=== PATIENT | female | born 1990 | race American Indian/Alaskan Native ===

== ENCOUNTER 2018-10-08 16:49 | Emergency (ER) | payer BC ==
[2018-10-08] MEDS ORDERED: Ketorolac 60 MG/2 ML SDV IM ONE (17:02)
[2018-10-08] MEDS ORDERED: Acetaminophen/HYDROcodone 325-5 MG Tab PO ONE (17:12)
[2018-10-08] MEDS ORDERED: Cyclobenzaprine 10 MG Tab PO ONE (17:46)
--- NOTE | 2018-10-08 18:01 | EDM.PDOC ---
ED HPI GENERAL MEDICAL PROBLEM - General Chief Complaint: Back Pain or Injury Stated Complaint: mid back pain Time Seen by Provider: 10/08/18 16:55 Source of Information: Reports: Patient History Limitations: Reports: No Limitations - History of Present Illness INITIAL COMMENTS - FREE TEXT/NARRATIVE: patient reports waking this am with LEFT side mid back pain that progressively worsened throughout the day. she denies trauma or injury. she denies other concerns or complaints. Onset: Today, Gradual Duration: Constant, Getting Worse Quality: Reports: Other (squeeze / spasm) Severity: Moderate Improves with: Reports: None Worsens with: Reports: Movement Context: Reports: Other (works as a [employer]EMENT [employer]. daily heaving lifting. 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 [No Known Home Meds] 04/12/14 [History] Social & Family History - Family History Family Medical History: Noncontributory - Tobacco Use Smoking Status *Q: Never Smoker - Caffeine Use Caffeine Use: Reports: None - Recreational Drug Use Recreational Drug Use: No - Living Situation & Occupation Living situation: Reports: , with Family Occupation: Employed ED ROS GENERAL - Review of Systems Review Of Systems: See Below Constitutional: Denies: Fever, Chills Respiratory: Denies: Shortness of Breath Cardiovascular: Denies: Chest Pain GI/Abdominal: Denies: Abdominal Pain, Diarrhea, Nausea, Vomiting : Denies: Dysuria, Flank Pain Musculoskeletal: Reports: Back Pain. Denies: Neck Pain Skin: Denies: Rash Neurological: Denies: Dizziness, Headache ED EXAM,LOWER BACK PAIN/INJURY - Physical Exam Exam: See Below Exam Limited By: No Limitations General Appearance: Alert, WD/WN, No Apparent Distress Head: Atraumatic, Normocephalic Neck: Full Range of Motion Respiratory/Chest: No Respiratory Distress Cardiovascular: Normal Peripheral Pulses, Regular Rate, Rhythm, No Edema Back Exam: Normal Inspection, Decreased Range of Motion, Muscle Spasm. No: CVA Tenderness (L), CVA Tenderness (R), Paraspinal Tenderness, Vertebral Tenderness Extremities: Normal Inspection, Normal Range of Motion, Non-Tender Neurological: Alert, Normal Mood/Affect Psychiatric: Normal Affect, Normal Mood Skin Exam: Warm, Dry, Intact, Normal Color, No Rash Course - Vital Signs Last Recorded V/S: Last Vital Signs Temp 36.6 C 10/08/18 16:50 Pulse 86 10/08/18 16:50 Resp 20 10/08/18 16:50 BP 117/64 10/08/18 16:50 Pulse Ox 100 10/08/18 16:50 - Orders/Labs/Meds Meds: Medications Discontinued Medications Generic Name Dose Route Start Last Admin Trade Name Freq PRN Reason Stop Dose Admin Hydrocodone Bitart/Acetaminophen 2 tab 10/08/18 17:12 10/08/18 17:17 [place] 325-5 Mg PO 10/08/18 17:13 2 tab ONETIME ONE Administration Cyclobenzaprine HCl 10 mg 10/08/18 17:46 Flexeril PO 10/08/18 17:47 ONETIME ONE Ketorolac Tromethamine 60 mg 10/08/18 17:02 10/08/18 17:16 Toradol IM 10/08/18 17:03 60 mg ONETIME ONE Administration Departure - Departure Time of Disposition: 17:55 Disposition: Home, Self-Care 01 Condition: Good Clinical Impression: Muscle spasm of back - Discharge Information *PRESCRIPTION DRUG MONITORING PROGRAM REVIEWED*: Not Applicable *COPY OF PRESCRIPTION DRUG MONITORING REPORT IN PATIENT DANIA: Not Applicable Instructions: Muscle Cramps and Spasms Referrals: Keke Torres RN [Emergency Nurse] - Additional Instructions: REST HYDRATE TAKE ALL MEDICATIONS DIRECTED OTC TYLENOL AND IBUPROFEN NEEDED FOR PAIN ALTERNATE ICE AND HEAT TO THE AREA FOLLOW UP WITH YOUR PCP IN 3-5 DAYS GO TO [facility] ER IF CHANGE OR WORSE - Problem List Review Problem List Initiated/Reviewed/Updated: Yes - Assessment/Plan Assessment:: muscle spasm given PO cyclobenzaprine, po norco, and IM toradol. these interventions somewhat relieved her pain. rx for po cyclobenzaprine. advised patient to rest, hydrate, take all rx as directed, otc tylenol / ibuprofen prn pain, alternate ice and heat, go to closest er if new or worse symptoms, fu with PCP in 3-5 days. patient and significant other at bedside report understanding and agreement with plan. dc home stable in care of significant other.
== END 2018-10-08 18:06 | disposition home or self-care (01) ==
LOC: CC.ED 16:49 → SUPCPDRO 16:49 → CC.ED 18:06
DX: M62.830 Muscle spasm of back (principal)
CPT/HCPCS: 96372; 99283; A9270; J1885